=== PATIENT | male | born 1935 | race Caucasian/White ===

== ENCOUNTER 2022-05-12 07:25 | Day surgery (SDC) | payer OTHER, MEDICARE ==
[2022-05-08 10:58] LABS: Absolute Lymphocytes (CBC) 1.8 K/uL (0.7-4.9); Hematocrit 39.4 % (39.6-49.0); Lymphocytes % 31.5 % (15.3-44.8); MCV 89.8 fL (80-100); RBC Red Blood Cell Count 4.38 M/uL (4.33-5.43)
--- NOTE | 2022-05-08 11:13 | RAD REPORT ---
EXAM DESCRIPTION: RAD - Chest Pa And Lat (2 Views) - 05/08/2022 10:48 am CLINICAL HISTORY: pre op for surgery, pending hernia repair COMPARISON: None TECHNIQUE: Frontal and lateral views of the chest were obtained. FINDINGS: The lungs are clear of a focal mass or consolidation. No failure or volume overload. Inter stitial markings are mildly prominent. 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 No acute failure or volume overload. Heart size is normal and central vasculature is within normal limits. No pleural effusion or pneumothorax seen. No acute bony finding noted. No aortic abnormali ty. IMPRESSION: No acute cardiopulmonary process.
[2022-05-08 11:25] LABS: Potassium 4.2 mmol/L (3.5-5.1)
--- NOTE | 2022-05-09 17:35 | EKG ---
Test Date: 2022-05-08 Test Time: 10:33:10 Railroad Police Officer: MARSHALL MEASUREMENT RESULTS: Intervals: Rate: 54 MI: 198 QRSD: 144 QT: 464 QTc: 440 [place]: P: -11 MI: 198 QRS: -10 T: 24 INTERPRETIVE STATEMENTS: Sinus bradycardia Right bundle branch block Abnormal ECG No previous ECG available for comparison Electronically Signed On 05-09-22 17:31:41 ECONOMIC GEOGRAPHER by Joshua Molina
[2022-05-12] MEDS: BUPIVACAINE 0.5% PF 10 ML VIAL ONE ×2 (08:12→08:52)
[2022-05-12] MEDS: CEFAZOLIN SODIUM 1 GM/VIAL ONE ×2 (08:14→08:45)
[2022-05-12] MEDS: Ringers Lactate 1,000 ML IV ONE ×2 (08:15→08:25)
[2022-05-12] MEDS ORDERED: LIDOCAINE 2% MPF 5 ML VIAL ONE (08:16)
[2022-05-12] MEDS ORDERED: propofoL 200 MG/20 ML VIAL IV ONE (08:16)
[2022-05-12] MEDS ORDERED: KETOROLAC 30 MG/ML INJ ONE (08:16)
[2022-05-12] MEDS ORDERED: ROCURONIUM 50 MG/5 ML VIAL IV ONE (08:16)
[2022-05-12] MEDS ORDERED: dexAMETHasone 10 MG/ML VIAL ONE (08:16)
[2022-05-12] MEDS ORDERED: FENTANYL CITR 100 MCG/2 ML ONE (08:16)
[2022-05-12] MEDS ORDERED: ONDANSETRON 4 MG/2 ML VIAL ONE (08:18)
[2022-05-12] MEDS ORDERED: GLYCOPYRROLATE 0.2 MG/ML SYR ONE ×2 (09:01→09:23)
[2022-05-12] MEDS ORDERED: EPHEDRINE SULF 50 MG/ML VIAL ONE (09:06)
[2022-05-12] MEDS ORDERED: Mastisol Adhesive Liq ONE (09:28)
[2022-05-12] MEDS ORDERED: NEOSTIGMINE 1 MG/ML -5 ML ONE (09:28)
--- NOTE | 2022-05-12 09:33 | P.OP ---
Date of Service: 05/12/22 Preop diagnosis: Incisional hernia Postop diagnosis: Same Procedure performed: Lap assisted repair of incisional hernia Surgeon: Jorge Alberto Reis MD Adult School Teacher: Margarette ESCOBAR Estimated blood loss: Minimal Specimen: Hernia sac Findings: As above Anesthesia: General Complications: None Drains: None Fluids and blood products: Nonapplicable Disposition: Recovery room Operative note: Patient brought to the OR and placed in the supine position. General anesthesia begun. Patient prepped and draped in the usual sterile fashi on. Marcaine 0.5% infiltrated locally. 15 blade used to make a 1 cm left upper quadrant incision. Subcutaneous tissue divided. Bleeding controlled with cautery. Fascia identified and divided. #1 Vicryl stay suture placed. Peritoneal cavity entered with sharp and blunt dissection. 12 mm trocar placed into the peritoneal cavity under direct vision. Pneumoperitoneum established. 5 mm trocar placed in the left lower quadrant under direct vision. Laparoscopy revealed a hernia just above the umbilicus with omentum in it. This was reduced. Then a 3 cm incision was made over the hernia itself. Subcutaneous tissue divided. Hernia sac and contents identified and excised and sent to pathology as specimen. A 3 cm defect remained. #1 PDS suture used to close the fascial defect primarily. Pneumoperitoneum reestablished. Oval Bard mesh placed in the peritoneal cavity in the standard position. The balloon system deployed in the standard fashion. An sorbitex used to secure the mesh to the peritoneal surface. Complete coverage of the hernia defect accomplished. No evidence of bleeding or bowel injury appreciated. All trochars removed under direct vision. Stay sutures tied to each other to reapproximate the fascial defect. Subcutaneous wounds irrigated and bleeding controlled with cautery. 3- 0 chromic used to approximate subcutaneous tissue and close skin. Sterile dres sing applied. Patient awakened and taken to recovery room in good general condition. CC:
[2022-05-12] MEDS ORDERED: HYDROCODONE/APAP 7.5/325 MG TAB PO PRN (09:34)
[2022-05-12 10:32] VITALS: BP 121/69; TEMP 97.2; O2SAT 97
[2022-05-12] MEDS ORDERED: HYDROCODONE/APAP 7.5/325 MG TAB ONE (10:44)
== END 2022-05-12 11:20 | disposition home or self-care (01) ==
LOC: OR 07:25
PROVIDERS: ATTEND Surgery
PROC: 0WUF4JZ Supplement Abdominal Wall with Synthetic Substitute, Percutaneous Endoscopic Approach (ICD-10-PCS; principal; 2022-05-12 08:30)
DX: K43.2 Incisional hernia without obstruction or gangrene (principal)
CPT/HCPCS: 93005; 85025; 80048; 36415; 88302; 71046; 49593; J2704; J2001; J3010; J1100; J2710; J7120; J2405; J0690

== ENCOUNTER 2023-07-23 10:45 | Day surgery (SDC) | payer OTHER, MEDICARE ==
--- NOTE | 2023-07-22 09:35 | RAD REPORT ---
EXAM DESCRIPTION: RAD - Chest Pa And Lat (2 Views) - 07/22/2023 9:28 am CLINICAL HISTORY: Pre op pending heart cath Chest pain. COMPARISON: Chest Pa And Lat (2 Views) dated 05/08/2022 TECHNIQUE: PA and lateral views of the chest were obtained. FINDINGS: The lungs are hyperexpanded compatible with COPD. The heart is upper limit of normal in si ze. No fracture or aggressive bony process. IMPRESSION: COPD without acute process identified. The USPSTF recommends annual screening for lung cancer with low-dose CT (LDCT) in adults aged 50 to 80 years who have a 20 pack-year smoking history and currently smoke or have quit within the past 15 years.
[2023-07-22 09:52] LABS: Absolute Eosinophils 0.4 K/uL (0-0.5); Absolute Lymphocytes (CBC) 1.7 K/uL (0.7-4.9); Absolute Monocytes 0.4 K/uL (0.1-1.3); Basophils % 0.6 % (0-1.3); Eosinophils % 6.6 % (0-4.4); Hematocrit 38.6 % (39.6-49.0); Hemoglobin 12.7 g/dL (13.6-17.9); Lymphocytes % 31.2 % (15.3-44.8); MCH 29.9 pg (27.0-35.0); MCV 90.7 fL (80-100); MPV 8.4 fL (7.6-11.3); Monocytes % 7.5 % (3.3-12.3); Neutrophils % 54.1 % (41.7-73.7); Nucleated Red Blood Cells % 0.1 % (0-0); Platelets 185 thou/uL (152-406); RBC Red Blood Cell Count 4.26 M/uL (4.33-5.43); Red Cell Distribution Width 14.3 % (12.1-15.2)
[2023-07-22 09:54] LABS: PTT, Activated Partial Thromb 31.8 SECONDS (24.3-36.9); Protime INR 0.91
[2023-07-22 09:58] LABS: Anion Gap 6.2 mEq/L (5.0-15.0); Potassium 4.2 mEq/L (3.5-5.1)
[2023-07-23] MEDS ORDERED: HEPARIN 5000 UNIT/ML 1 ML VIAL ONE (11:28)
[2023-07-23] MEDS ORDERED: LIDOCAINE 1% 20 ML MDV ONE (11:28)
[2023-07-23] MEDS ORDERED: HEPA 1000U/500MLS 2,000 UNIT/1,000 ML BAG IV ONE (11:28)
[2023-07-23] MEDS ORDERED: FENTANYL CITR 100 MCG/2 ML ONE (12:18)
[2023-07-23] MEDS ORDERED: MIDAZOLAM HCL 2 MG/2 ML INJ ONE (12:18)
[2023-07-23] MEDS: NA CHLORIDE 0.9% 500 ML ONE (13:25)
[2023-07-23 14:33] VITALS: TEMP 97
[2023-07-23 14:34] VITALS: BP 129/56; O2SAT 100
--- NOTE | 2023-07-23 15:41 | EKG ---
Test Date: 2023-07-22 Test Time: 09:16:56 Multiple Drill Operator: JIM MEASUREMENT RESULTS: Intervals: Rate: 58 AL: 180 QRSD: 134 QT: 456 QTc: 447 [place]: P: -20 AL: 180 QRS: -8 T: 48 INTERPRETIVE STATEMENTS: Sinus bradycardia Right bundle branch block Septal infarct, age undetermined Abnormal ECG Compared to ECG 05/08/2022 10:33:10 Myocardial infarct finding now present Electronically Signed On 07-23-23 15:39:27 CDT by Joshua Molina
--- NOTE | 2023-07-23 16:21 | OP ---
Date of Procedure: 07/23/2023 Surgeon: Suman Carpio Procedures Performed: 1.Right heart catheterization. 2.Left heart catheterization. 3.Selective coronary angiogram. Indication For Procedure: Worsening shortness of breath, abnormal stress test. Complications: None. Sedation Time: 25 minutes. Estimated Blood Loss: Less than 50 cc. Description Of Procedure: After risks and benefits and alternatives were explained to the patient, p helen agreed to proceed with the procedure and signed informed consent. Patient was brought to the laboratory manager, prepped and draped in a sterile fashion. A time-out was performed. Sedation was administe red. The right IJ access was obtained with a 7-[place] sheath using micropuncture technique ultrasoun d-guided. Next, right radial access was obtained with a 6-[place] sheath. We advanced the [place] into the right heart. Measurements were obtained and the [place] was removed and the right IJ was closed wit h the manual compression. Barnett 4.0 catheter was advanced over the J-wire to the left ventricular ca vity. LV end-diastolic pressure was obtained. Pullback did not show any gradient. Same catheter wa s used for selective angiogram of the right coronary artery, but we were unable to engage the left ma in, so that was exchanged for a JL4 catheter, which we were able to engage the left main artery. Gail ective angiogram was performed. The catheter was removed over the J-wire and right radial access was closed with a TR band after sheath removal. Patient moved to Recovery in stable condition. Findings: 1.Left main is normal. 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 3.Left circ, mild luminal irregularities. 4.RCA; large, dominant, ectatic, ostial to proximal 30% disease, then mild LI. RPDA and RPLV, mild LI. 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 3.Normal filling pressures. Plan will be to continue aggressive medical management of heart failure symptoms. BERMAN/MODL Voice ID: [id number] Report ID: [id number]
== END 2023-07-23 14:40 | disposition home or self-care (01) ==
LOC: CCL 10:45
PROVIDERS: ATTEND Internal Medicine
DX: I25.10 Atherosclerotic heart disease of native coronary artery without angina pectoris (principal); I73.9 Peripheral vascular disease, unspecified; I10 Essential (primary) hypertension; E78.5 Hyperlipidemia, unspecified; Z87.891 Personal history of nicotine dependence; Z79.899 Other long term (current) drug therapy
CPT/HCPCS: 93005; 85025; 80048; 36415; 85610; 85730; 71046; 93460; 76937; C1893; Q9966; J1644; J2001; J2250; J3010; J7040; 99152; 99153

== ENCOUNTER 2024-12-14 05:27 | Day surgery (SDC) | payer OTHER, MEDICARE ==
[2024-12-14 06:20] LABS: Absolute Lymphocytes (CBC) 2.0 K/uL (0.7-4.9); Hematocrit 39.8 % (39.6-49.0); Hemoglobin 13.4 g/dL (13.6-17.9); MCH 29.5 pg (27.0-35.0); MCHC 33.7 g/dL (32.0-36.0); MCV 87.6 fL (80-100); MPV 8.0 fL (7.6-11.3); Nucleated RBC Absolute Count 0.0 (0-0); Nucleated Red Blood Cells % 0.1 % (0-0); RBC Red Blood Cell Count 4.54 M/uL (4.33-5.43); White Blood Count 5.90 thou/uL (4.3-10.9)
[2024-12-14 06:44] LABS: Anion Gap 9.0 mEq/L (5.0-15.0); BUN Blood Urea Nitrogen 22.0 mg/dL (7-18); Glucose Level 88.0 mg/dL (74-106)
[2024-12-14 06:45] LABS: PT Prothrombin Time 11.2 SECONDS (10-13.0); PTT, Activated Partial Thromb 30.6 SECONDS (27.2-37.4); Potassium 4.0 mEq/L (3.5-5.1); Protime INR 0.99
[2024-12-14] MEDS ORDERED: LIDOCAINE 2% MPF 5 ML VIAL ONE (07:14)
[2024-12-14] MEDS ORDERED: ROCURONIUM 50 MG/5 ML VIAL IV ONE ×2 (07:14→08:13)
[2024-12-14] MEDS ORDERED: FENTANYL CITR 100 MCG/2 ML ONE ×2 (07:15→08:08)
[2024-12-14] MEDS: CEFAZOLIN SODIUM 2 GM/VIAL ONE (07:16)
[2024-12-14] MEDS: BUPIVACAINE 0.5% PF 10 ML VIAL ONE (07:17)
[2024-12-14] MEDS: Ringers Lactate 1,000 ML IV ONE (07:18)
[2024-12-14] MEDS ORDERED: EPHEDRINE SULF 50 MG/ML VIAL ONE (07:56)
[2024-12-14] MEDS ORDERED: ONDANSETRON 4 MG/2 ML VIAL ONE (07:57)
[2024-12-14] MEDS: Mastisol Adhesive Liq ONE (08:47)
--- NOTE | 2024-12-14 08:58 | P.OP ---
Date of Service: 12/14/24 Preop diagnosis: Recurrent ventral hernia Postop diagnosis: Same with extensive adhesions Procedure performed: Laparoscopic assisted repair of recurrent ventral hernia and lysis of adhesion Surgeon: Jorge Alberto Reis MD Statistical Financial Analyst: None Estimated blood loss: Minimal Specimen: Hernia sac Findings: As above Anesthesia: General Complications: None Drains: None Fluids and blood products: None nonapplicable Disposition: Recovery room Operative note: Patient brought to the OR and placed in supine position. General anesthesia began. Patient prepped and draped in usual sterile fashion. Marcaine 0.5% created. 15 blade used to make a 1 cm left upper quadrant incision. Subcu tissue divided. Bleeding controlled with cautery. Fascia identified and divided. #1 Vicryl stay suture placed. Peritoneal cavity entered with sharp and blunt dissection. 12 mm trocar placed into the peritoneal cavity under direct vision. Pneumoperitoneum established. A 5 mm trocar placed in the left lower quadrant under direct vision. Laparoscopy revealed extensive omental adhesions attached to the previous mesh. These were taken down with LigaSure. Approximately 10 minutes was utilized to take down the adhesions. On the left lower quadrant of the previous repair there was a approximately 4 cm defect with omentum in it. The omentum was reduced back into the peritoneal cavity. A 4 cm incision was made over the hernia. Subcu tissue divided and bleeding controlled cautery. Hernia sac identified and excised at the fascial edges. Good fascial edges obtained. #1 PDS used to close the fascial defect. Then a Medtronic mesh placed into the peritoneal cavity under direct vision. The sutures were grasped and proper alignment occurred. The mesh was approximately 12 cm in size and oval in shape. The sutures were used to align the mesh. A absorbable tacker was used to secure the mesh to the peritoneal cavity. Complete coverage of the hernia site was accomplished. There was no evidence of bleeding or bowel injury appreciated. All trocars removed under direct vision. Stay sutures tied to each other to reapproximate the fascial defect. Subcutaneous wound irrigated and bleeding controlled cautery. 3-0 chromic used to approximate subcu tissue and close skin. Sterile dressing applied. Patient awakened and taken to recovery room in good general condition. CC:
[2024-12-14] MEDS ORDERED: SUGAMMADEX SODIUM 200 MG/2 ML VIAL IV ONE (09:12)
--- NOTE | 2024-12-14 09:14 | RAD REPORT ---
EXAMINATION: ONE VIEW CHEST XR CLINICAL INDICATION: Male, 89 years old. Hypertension,preop SDS RM 5 TECHNIQUE: Frontal chest projection is submitted. Examination is limited by patient positioning and t echnique. COMPARISON: 07/22/2023 FINDINGS: The lungs are well inflated and clear. No pneumothorax or sizable effusion. The heart is normal in s ize. Mediastinal contours are unremarkable. Left chest wall rhythm monitoring device in place IMPRESSION: No acute intrathoracic abnormalities.
[2024-12-14] MEDS ORDERED: HYDROCODONE/APAP 7.5/325 MG TAB ONE (09:57)
[2024-12-14 10:02] VITALS: BP 145/71; TEMP 97.9; O2SAT 97
[2024-12-14] MEDS: HYDROCODONE/APAP 7.5/325 MG TAB PO PRN (10:04)
== END 2024-12-14 10:53 | disposition home or self-care (01) ==
LOC: PRE 05:27 → OR 10:53
PROVIDERS: ATTEND Surgery
PROC: 0WUF4JZ Supplement Abdominal Wall with Synthetic Substitute, Percutaneous Endoscopic Approach (ICD-10-PCS; 2024-12-14)
PROC: 0DNU4ZZ Release Omentum, Percutaneous Endoscopic Approach (ICD-10-PCS; principal; 2024-12-14 07:30)
DX: K43.2 Incisional hernia without obstruction or gangrene (principal); K66.0 Peritoneal adhesions (postprocedural) (postinfection)
CPT/HCPCS: 93005; 85025; 80048; 36415; 85610; 88302; 85730; 71045; 49329; 49615; J2704; J1100; J2003; J3010 ×2; J2405; J7120